=== PATIENT | male | born 1965 | race Caucasian/White ===

== ENCOUNTER 2024-08-08 20:23 | Emergency (ER) | payer OTHER, MEDICAID, SELFPAY ==
[2024-08-08 20:24] VITALS: BMI 19.1
[2024-08-08 20:59] VITALS: BP 142/82; PULSE 60; RESP 18; TEMP 36.6; O2SAT 99
--- NOTE | 2024-08-08 21:12 | XR_ITS ---
Examination: PA lateral chest 2 views Technique: Upright PA lateral chest 2 views Exam date and time: August 08, 2024 2124 hrs. Indications: Chest pain shortness of breath today. Findings: Moderate hyperexpansion No pneumonia in the right middle lobe and lingular segment left upper lobe Normal heart size The osseous structures are intact Tiny opacities overlie the left chest and arm Impression: COPD Pneumonia in the right middle lobe and lingular segment left upper lobe
--- NOTE | 2024-08-08 21:12 | PD.EDRME ---
Rapid Medical Screening Exam RME Arrival date/time: 08/08/24 20:23 59-year-old male presents emergency department complaining of chest pain with shortness of breath for several days. Chief Complaint: Shortness of Breath/Dyspnea Time Seen by Provider: 08/08/24 21:07 Vital signs: Vital Signs Temperature 98 F 08/08/24 20:59 Pulse Rate 60 08/08/24 20:59 Respiratory Rate 18 08/08/24 20:59 Blood Pressure 142/82 H 08/08/24 20:59 Pulse Oximetry (%) 99 08/08/24 20:59 Oxygen Delivery Method Room Air 08/08/24 20:59 Vital signs reviewed by provider: Yes
[2024-08-08 21:58] LABS: Basophils # (Auto) 0.1 Thou/mm3 (0.0-0.2); Basophils % (Auto) 1 % (0-2.5); Eosinophils # (Auto) 0.2 Thou/mm3 (0.0-0.5); Eosinophils % (Auto) 2 % (0-10); Hematocrit 35.9 % (41.0-53.0); Hemoglobin 12.1 g/dL (13.5-16.0); Immature Granulocytes % (Auto) 1 % (0-0); Immature Granulocytes Auto 0.06 Thou/mm3 (0.00-0.00); Lymphocytes % (Auto) 24 % (10-50); Mean Corpuscular HGB Conc 33.7 g/dl (31.0-37.0); Mean Corpuscular Hemoglobin 30.4 pg (25.0-35.0); Mean Corpuscular Volume 90 fL (80-100); Monocytes # (Auto) 1.5 Thou/mm3 (0.0-0.8); Monocytes % (Auto) 12 % (0-12); Neutrophils # (Auto) 7.7 Thou/mm3 (1.8-7.7); Neutrophils % (Auto) 61 % (37-80); Nucleated Red Blood Cell % 0 /100 WBC (0); Platelet Count 489 Thou/mm3 (140-440); RDW Standard Deviation 39.6 fL (35.1-43.9); Red Blood Count 3.98 Miln/mm3 (4.50-5.90); White Blood Count 12.6 Thou/mm3 (3.8-10.6)
[2024-08-08 22:17] LABS: INR 1.1 (0.9-1.3); Partial Thromboplastin Time 32.4 Seconds (22.0-36.0); Prothrombin Time 12.1 Seconds (9.0-12.2)
[2024-08-08 22:22] LABS: B-Type Natriuretic Peptide 30 pg/mL (0-100)
[2024-08-08 22:23] LABS: Alanine Aminotransferase 9 U/L (10-49); Albumin, Serum 4.4 gm/dL (3.4-4.8); Albumin/Globulin Ratio 1.5 (1.2-2.2); Alkaline Phosphatase 116 U/L (46-116); Anion Gap 7 (7-16); Aspartate Amino Transferase 17 U/L (0-34); BUN/Creatinine Ratio 12 Ratio (12-20); Bilirubin,Total 0.3 mg/dL (0.3-1.2); Blood Urea Nitrogen 16 mg/dL (9-23); Calcium 10.1 mg/dL (8.3-10.6); Calcium (Corrected) 10.1 mg/dL (8.5-10.1); Chloride 99 mMol/L (98-107); Creatinine (Component) 1.3 mg/dL (0.6-1.3); Estimated Creatinine Clearance 56.2 mL/min (>60); Glucose 80 mg/dL (74-106); Magnesium 2.1 mg/dL (1.6-2.6); Osmolality,Calculated 268 (275-295); Potassium 4.5 mMol/L (3.4-5.1); Sodium 134 mMol/L (136-145); Total Protein 7.4 gm/dL (5.7-8.2); Troponin I < 0.020 ng/mL (0.0-0.045); eGFR > 60 See Note
--- NOTE | 2024-08-08 23:31 | EDNOTE_ITS ---
ED SOB =RME/HPI General Chief Complaint: Shortness of Breath/Dyspnea Stated Complaint: SOB AND DIZZINESS Time Seen by Provider: 08/08/24 21:07 Source: patient Arrival date/time: 08/08/24 20:23 59-year-old male presents emergency department complaining of chest pain with shortness of breath for several days. Mode of arrival: ambulatory Limitations: no limitations RME / HPI RME / HPI Narrative: 08/08/24 20:23 59-year-old male presents emergency department complaining of chest pain with shortness of breath for several days. Related Data Home Medications ?Medication ?Instructions ?Recorded ?Confirmed buspirone 30 mg tablet 30 mg PO BID 05/11/19 05/11/19 duloxetine 30 mg capsule,delayed 30 mg PO QDAY 05/11/19 05/11/19 release (Cymbalta) gabapentin 600 mg tablet 600 mg PO TID 05/11/19 05/11/19 Previous Rx's ?Medication ?Instructions ?Recorded hydrocodone 5 mg-acetaminophen 325 1 tab PO Q4H PRN pain #20 tabs 05/12/19 mg tablet ([place]) levofloxacin 750 mg tablet 750 mg PO QDAY 5 days #5 tabs 08/08/24 Allergies Allergy/AdvReac Type Severity Reaction Status Date / Time No Known Allergies Allergy Verified 08/08/24 20:23 Review of Systems Review of Systems Systems Reviewed: All systems reviewed, normal except as documented Constitutional Constitutional: Reports system reviewed and no additional complaints, except as documented, Denies body ache(s), Denies chills and Denies fever(s) Eyes Eyes: Reports system reviewed and no additional complaints, except as documented and Denies change in vision ENT Ears, Nose, Mouth, and Throat: Reports system reviewed and no additional complaints, except as documented, Denies disequilibrium, Denies dizziness, Denies sore throat and Denies vertigo Cardiovascular Cardiovascular: Reports system reviewed and no additional complaints, except as documented, Reports chest pain and Reports dyspnea Respiratory Respiratory: Reports system reviewed and no additional complaints, except as documented, Denies chest congestion, Denies cough and Reports dyspnea Gastrointestinal Gastrointestinal: Reports system reviewed and no additional complaints, except as documented, Denies abdominal pain, Denies nausea and Denies vomiting Musculoskeletal Musculoskeletal: Reports system reviewed and no additional complaints, except as documented, Denies abnormal gait and Denies arthralgias Integumentary/Breasts Skin/Breast: Reports system reviewed and no additional complaints, except as documented, Denies erythema, Denies rash and Denies wounds Neurologic Neurologic: Reports system reviewed and no additional complaints, except as documented, Denies abnormal gait, Denies disequilibrium, Denies dizziness and Denies vertigo Past Medical History Past Medical History NEUROLOGIC: Positive Cerebrovascular Accident (2004) and Peripheral Neuropathy; Negative Seizures CARDIAC: Positive Hypertension (B/P ELEVATES DURING STRESS); Negative Cardiac Disorders or Congestive Heart Failure RESPIRATORY: Positive Pulmonary Embolism (AT AGE 22) and Sleep Apnea (UNABLE TO DO SLEEP STUDY); Negative Chronic Obstructive Pulmonary Disease (COPD) GASTROINTESTINAL: Positive Gastrointestinal Disorders and Ulcer (STATES BLEEDS SOMETIMES) GENITOURINARY: Negative Genitourinary Disorders or Renal Disease MUSCULOSKELETAL: Positive Musculoskeletal Disorders (CERVICAL SPONDYLITIS) and Fibromyalgia ENDOCRINE: Negative Endocrine Disorders, Diabetes Mellitus Type 1 or Diabetes Mellitus Type 2 HEMATOLOGIC: Negative Blood Disorders PSYCHO/SOCIAL: Positive Psychiatric Problems, Depression, Anxiety and Post Traumatic Stress Disorder OTHER HISTORY: Positive Falls, MRSA ([facility] INFECTION IN 2010), Chicken Pox, Measles, Mumps and Cancer; Negative Blood Transfusions, Blood Transfusion Reaction, Anesthesia Reactions or Organ Transplant Family History FAMILY HISTORY: Positive Family Psychiatric Problems (BIPOLAR) and Family Cardiac Disorders Surgical History SURGICAL: Positive Open Reduction Internal Fixation (ANKLE IN 1995); Negative Neurologic Surgery or Organ Transplant Social History SMOKING STATUS: Current every day smoker ED Exam General Limitations: Present no limitations General appearance: Present alert and in no apparent distress Head Head exam: Present atraumatic Eye Eye exam: Present normal appearance, PERRL and EOMI ENT ENT exam: Present normal exam, normal oropharynx and mucous membranes moist Neck Neck exam: Present normal inspection, full ROM and trachea midline Chest Chest inspection: Present normal inspection and symmetric chest wall rise Respiratory Respiratory exam: Present normal lung sounds bilaterally Cardiovascular Cardiovascular exam: Present regular rate, normal rhythm and normal heart sounds Abdominal Exam Abdominal exam: Present soft and normal bowel sounds Extremities Exam Extremities exam: Present normal inspection and full ROM Back Exam Back exam: Present normal inspection and full ROM Neurological Exam Neurological exam: Present alert, oriented X3 and CN II-XII intact Psychiatric Psychiatric exam: Present normal affect and normal mood Skin Skin exam: Present warm, dry, intact and normal color Course Quality Measures none Orders Category Date Time Status EKG (ED ONLY) *Do not use* NOW Care 08/08/24 21:12 Completed EKG (ED Only) Stat Exams 08/08/24 21:12 Ordered XR chest 2V Stat Exams 08/08/24 21:12 Completed B-Type Natriuretic Peptide Stat Lab 08/08/24 21:33 Completed CBC Stat Lab 08/08/24 21:33 Completed Comprehensive Metabolic Panel Stat Lab 08/08/24 21:33 Completed Drug Screen,Urine Stat Lab 08/08/24 21:12 Ordered Magnesium Stat Lab 08/08/24 21:33 Completed Partial Thromboplastin Time Stat Lab 08/08/24 21:33 Completed Prothrombin Time with INR Stat Lab 08/08/24 21:33 Completed Troponin I Stat Lab 08/08/24 21:33 Completed Urinalysis Stat Lab 08/08/24 21:12 Ordered cefTRIAXone [Rocephin] 1,000 mg Med 08/08/24 23:30 Discontinued Lidocaine 1% 20 ml [Xylocaine 1% 20 ML] 2.1 ml IM X1 Vital Signs Vital signs: Vital Signs Temperature 98 F 08/08/24 20:59 Pulse Rate 60 08/08/24 20:59 Respiratory Rate 18 08/08/24 20:59 Blood Pressure 142/82 H 08/08/24 20:59 Pulse Oximetry (%) 99 08/08/24 20:59 Oxygen Delivery Method Room Air 08/08/24 20:59 99% room air within normal limits Procedures -ED EKG Interpretation #1: Date of EK08/08/24 Time of EK:25 Rate: 114 Interpretation: Interpreted by me EKG Impression: No acute ST-T changes, No ectopy, No ischemic changes, Sinus tachycardia and Normal QRS Shortness of Breath / Dyspnea MDM Narrative MDM Narrative:: 59-year-old male presents emergency department complaining of chest pain with shortness of breath for several days. CBC mild leukocytosis 12.6. CMP was unremarkable. Negative troponin EKG sinus tach. X-ray findings right middle lobe pneumonia. Patient 99% on room air does not appear to be in any respiratory distress sp eaking in full sentences. Patient refused to give urine and at time of discharge patient was angry, yelling, using foul language, attempted to give discharge instructions but patient was uncooperative and not receptive to instruction at this time. Patient stable for discharge. Patient given IM Rocephin and discharged on oral Levaquin for 5 days. Patient data External records reviewed:: [facility] previous records Clinical information provided by:: patient Social determinants that could affect healthcare access:: none Patient has the following chronic illnesses:: See chart How is presenting disease/condition affected by chronic disease/condition?: uneffected by Evaluation data The following diagnostics were reviewed and interpreted by me:: lab results, radiology exam(s) and EKG tracing(s) Lab and/or radiology exams considered but not ordered:: Ordered Interpretation Summary: Interpreted by me Medications / Prescriptions Medications or Prescriptions considered but not ordered:: Ordered Medication administrations:: Medication Administration History Discontinued Medications Ceftriaxone Sodium 1,000 mg/ (Lidocaine HCl 2.1 ml) 0 mg IM X1 ONE Stop: 08/08/24 23:31 Last Admin: 08/08/24 23:41 Dose: 2.1 mg Documented By: SF Given Consultations Consultation(s) initiated? (list below): No Diagnosis Shortness of Breath Differential Diagnosis: acute exacerbation of chronic obstructive airways disease, congestive heart failure, community acquired pneumonia, asthma with exacerbation and pulmonary embolism Most likely diagnosis given after review of the tests above:: Community-acquired pneumonia Admission Indicated Admission indicated?: not indicated Admission Request Was there a request for admission?: No Disposition Plan Disposition Plan: Discharge Discharge Attestation Discharge Attestation: The patient and all family members were given an opportunity to ask questions and understood the discharge instructions. Discharge instructions specifically effects, indications for sooner follow up or return to the emergency department, and the expected course of current diagnosis. Patient condition: Stable Discharge Plan Plan Patient Disposition: HOME (Self Care) Disposition Comment: Stable Prescriptions/Referrals Prescriptions/Med Rec: New levofloxacin 750 mg tablet 750 mg PO QDAY 5 Days Qty: 5 0RF No Action gabapentin 600 mg Tablet 600 mg PO TID buspirone 30 mg Tablet 30 mg PO BID duloxetine [Cymbalta] 30 mg Capsule,Delayed Release(Dr/Ec) 30 mg PO QDAY hydrocodone-acetaminophen [[place]] 5-325 mg tablet 1 tab PO Q4H MDD 8 PRN (Reason: pain) Qty: 20 0RF Problem List Clinical Impression: Community acquired pneumonia Patient/Caregiver Discharge Instructions Discharge Activity: activity as tolerated Education Materials: ED Pneumonia (Adult) Additional Instructions: Take medication as prescribed. Drink fluids to liquefy secretions and complaining of rest. Follow-up with primary care provider in 2 to 3 days. Return to emergency department for any worsening symptoms or as needed. Print Language: Japanese Stand Alone Forms: Tiera Award Info., Patient Portal Info Letter PA/FRANCHISE BROKER Supervising Physician PA/FRANCHISE BROKER Supervising Physician: Dr. Rosa
[2024-08-08] MEDS: cefTRIAXone 1,000 MG, LIDOCAINE 1% 20 ML 2.1 ML IM (23:41)
== END 2024-08-08 23:49 | disposition home or self-care (01) ==
LOC: SERX 08-09 02:04
PROVIDERS: Emergency Provider Emergency Medicine
DX: J18.9 Pneumonia, unspecified organism (principal); F17.200 Nicotine dependence, unspecified, uncomplicated
CPT/HCPCS: 36415; 71046; 80053; 80307; 81001; 83735; 83880; 84484; 85025; 85610; 85730; 93005; 96372; 99283; J0696; J3490

== ENCOUNTER 2024-10-18 01:03 | Emergency (ER) | payer MEDICARE, MEDICAID, SELFPAY ==
--- NOTE | 2024-10-18 01:50 | PD.EDRME ---
Rapid Medical Screening Exam RME Arrival date/time: 10/18/24 01:03 59 yo m present to ED but did not want to answer any questions. pt was yelling and threaten staff. PD was called. Chief Complaint: Shortness of Breath/Dyspnea Time Seen by Provider: 10/18/24 01:16
--- NOTE | 2024-10-18 02:03 | PC.NURSE ---
DURING TRIAGE PATIENT WAS CUSSING AT STAFF AND THREW PEN ACROSS TABLE.
--- NOTE | 2024-10-18 02:04 | PC.NURSE ---
ONCE IN ROOM TO SEE PROVIDER, PT STARTED CUSSING AT PROVIDER AND OTHER STAFF MEMBERS, ATTEMPTED TO SLAM THE DOOR ON DR MCCORMICK. PT WAS ESCORTED OUTSIDE TO AWAIT PPD
== END 2024-10-18 02:24 | disposition left against medical advice (07) ==
LOC: SERX 05:37
PROVIDERS: Emergency Provider Emergency Medicine
DX: R06.02 Shortness of breath (principal); Z53.29 Procedure and treatment not carried out because of patient's decision for other reasons
CPT/HCPCS: 99281

== ENCOUNTER 2024-10-24 08:54 | Emergency (ER) | payer MEDICARE, MEDICAID, SELFPAY ==
[2024-10-24 08:55] VITALS: PULSE 104; RESP 19
[2024-10-24 09:06] VITALS: BP 138/91; PULSE 89; RESP 19; TEMP 36.3; O2SAT 98
--- NOTE | 2024-10-24 09:16 | XR_ITS ---
Examination: CT brain head without contrast. 2-D sagittal coronal reconstructions Date and time of exam:October 24, 2024 at 10:00 AM Comparison October 24, 2012 INDICATIONS: Headaches nausea vomiting beginning today CTDI: vol (mGy):46.6 DLP: (mGycm):1027 Technique: Multiple CT axial sections of the brain have been obtained, 5 mm slice thickness. Contrast has not been administered. 2-D sagittal, coronal reconstructions have been obtained Low dose protocols were performed. One or more of the following dose reduction techniques were used; automated exposure control, adjustment of the mA and/or KV according to patient size, use of iterative reconstruction technique. Findings: No significant ventricular enlargement. Intra-axial or extra-axial hemorrhage density is not seen. No mass effect or midline shift Basal cisterns are not remarkable. Fourth ventricle is midline. Cranial vault intact. Impression: Negative for acute hemorrhage, mass effect or midline shift Advise clinical correlation follow-up accordingly
--- NOTE | 2024-10-24 09:16 | PD.EDRME ---
Rapid Medical Screening Exam RME Arrival date/time: 10/24/24 08:54 59-year-old male with a no known medical history presents to the emergency room with a chief complaint of blurry vision, headaches x 2 days I have greeted and performed a focused initial assessment of this patient. A comprehensive ED assessment and evaluation of the patient, analysis of all test results, and completion of the medical decision making process will be conducted by additional ED providers. Chief Complaint: General Adult/Misc Complain Time Seen by Provider: 10/24/24 08:58 Vital signs: Vital Signs Temperature 97.3 F 10/24/24 09:06 Pulse Rate 89 10/24/24 09:06 Respiratory Rate 19 10/24/24 09:06 Blood Pressure 138/91 H 10/24/24 09:06 Pulse Oximetry (%) 98 10/24/24 09:06 Oxygen Delivery Method Room Air 10/24/24 09:06 Vital signs reviewed by provider: Yes
--- NOTE | 2024-10-24 09:17 | PC.NURSE ---
Patient yelling at [employer] yaron, and this nurse, requesting help, states i'm not gonna have no blood succer take my blood and i'm not gonna go in a box for xray patient c/o dizziness and blurred vision, informed patient the provider is ordering xrays and labs in order to help find out what is going on with him, patient continuing to yell at nursing staff and provider, called security to speak with patient.
[2024-10-24 10:20] LABS: Basophils # (Auto) 0.1 Thou/mm3 (0.0-0.2); Basophils % (Auto) 1 % (0-2.5); Eosinophils % (Auto) 1 % (0-10); Hematocrit 39.5 % (41.0-53.0); Hemoglobin 13.1 g/dL (13.5-16.0); Immature Granulocytes % (Auto) 0 % (0-0); Immature Granulocytes Auto 0.01 Thou/mm3 (0.00-0.00); Lymphocytes # (Auto) 1.9 Thou/mm3 (1.0-4.8); Lymphocytes % (Auto) 31 % (10-50); Mean Corpuscular HGB Conc 33.2 g/dl (31.0-37.0); Mean Corpuscular Hemoglobin 28.6 pg (25.0-35.0); Mean Corpuscular Volume 86 fL (80-100); Monocytes # (Auto) 0.5 Thou/mm3 (0.0-0.8); Monocytes % (Auto) 8 % (0-12); Neutrophils # (Auto) 3.6 Thou/mm3 (1.8-7.7); Neutrophils % (Auto) 59 % (37-80); Nucleated Red Blood Cell % 0 /100 WBC (0); Platelet Count 383 Thou/mm3 (140-440); RDW Standard Deviation 40.5 fL (35.1-43.9); Red Blood Count 4.58 Miln/mm3 (4.50-5.90); White Blood Count 6.1 Thou/mm3 (3.8-10.6)
[2024-10-24 10:35] LABS: B-Type Natriuretic Peptide 65 pg/mL (0-100)
[2024-10-24 10:38] LABS: Alanine Aminotransferase 11 U/L (10-49); Albumin, Serum 4.2 gm/dL (3.4-4.8); Albumin/Globulin Ratio 1.4 (1.2-2.2); Alkaline Phosphatase 90 U/L (46-116); Anion Gap 8 (7-16); Aspartate Amino Transferase 17 U/L (0-34); BUN/Creatinine Ratio 14 Ratio (12-20); Bilirubin,Total 0.5 mg/dL (0.3-1.2); Blood Urea Nitrogen 13 mg/dL (9-23); Calcium 9.8 mg/dL (8.3-10.6); Calcium (Corrected) 9.8 mg/dL (8.5-10.1); Carbon Dioxide 25.9 mMol/L (20.0-31.0); Chloride 103 mMol/L (98-107); Creatinine (Component) 0.9 mg/dL (0.6-1.3); Glucose 101 mg/dL (74-106); Osmolality,Calculated 273 (275-295); Potassium 4.1 mMol/L (3.4-5.1); Sodium 137 mMol/L (136-145); Total Protein 7.2 gm/dL (5.7-8.2); Troponin I < 0.020 ng/mL (0.0-0.045); eGFR > 60 See Note
--- NOTE | 2024-10-24 13:38 | PC.NURSE ---
PT IS DEMANDING. HE STATES HE IS STILL DIZZY AND IN EXTREME PAIN 22/05 .
--- NOTE | 2024-10-24 15:23 | PC.NURSE ---
patient refused vitals nurse notified
--- NOTE | 2024-10-24 15:29 | PC.NURSE ---
The patient is refusing to be evaluated by the provider and is verbally abusive towards the nursing staff and security. The patient is yelling loudly, insulting all staff members, and refusing care.
--- NOTE | 2024-10-24 15:36 | PC.NURSE ---
PT VERBALLY ABUSIVE TO STAFF MAKING FALSE ACCUSATIONS ABOUT STAFF. PT UPSET BECAUSE HE HAD TO WAIT.
--- NOTE | 2024-10-24 15:40 | PC.NURSE ---
POLICE AT BEDSIDE TO HELP REDIRECT PATIENT, SINCE HE IS SO LOUD CHILDREN AROUND HIM ARE GETTING SCARED.
[2024-10-24] MEDS: HYDROcodone/APAP 10/325 TAB PO (15:41)
--- NOTE | 2024-10-24 15:46 | PD.EDADULT ---
ED General RME/HPI General Chief complaint: General Adult/Misc Complain Stated complaint: C/O BODY ACHES, CORTEZ, DOUBLE VISION, N/V Time Seen by Provider: 10/24/24 08:58 Arrival date/time: 10/24/24 08:54 59 year old male with past medical history of multi complaints. pt was not cooperative and did not allow provider finish a sentence. Review recent labs and CT: no acute findings. urine and drug was not done due to patient not willing to give. pt is tolerating po fluids in exam room. pt was yelling at staff and not allow staff to finish explain his results or dig into his history. Pt decline to answer any follow up question. SEVERITY: Symptoms are described as being severe with limitations on activities of daily living CONTEXT: The patient is unable to identify any inciting events. DURATION/TIMING: The symptoms started approximately for 2 days ASSOCIATED SYMPTOMS: bodyaches, feet pain, vision changes, nausea vomiting MODIFYING FACTORS: The patient is unable to identify any alleviating or aggravating symptoms. PERTINENT ROS: no fevers, no cough, no chest pain/shortness of breath no diarrhea, no rash no loc/syncope episode no abd/back pain no dsyuria,urgency,frequency REVIEW OF SYSTEMS: See History of Present Illness - with the exception of those mentioned in the history of present illness, all other systems reviewed and reported as negative GENERAL: In general the patient is awake, interactive, in an emergency department gurney. HEAD/EYES/EARS/NOSE/THROAT: normo-cephalic, atraumatic, trachea is midline. CARDIOVASCULAR: regular rate and regular rhythm, no murmurs, heart sounds are not distant, strong pulses in all four extremities that are equal and symmetric bilateral upper and lower extremities CHEST/PULMONARY: normal chest rise and fall, good air movement, normal inspiratory to expiratory ratios without evidence of respiratory distress. NEUROLOGICAL: cranio-facial features are symmetric, moves all four extremities equally without obvious limitations or weakness. EXTREMITY: no tenderness to palpation over the long bones or large joints of the bilateral upper and lower extremities, no joint swelling, no joint erythema, no signs of trauma, SKIN: warm, dry, well-perfused, no jaundice, no rash, no telangiectasias or petechia. PSYCH: agitation RME / HPI RME / HPI narrative: 10/24/24 08:54 59-year-old male with a no known medical history presents to the emergency room with a chief complaint of blurry vision, headaches x 2 days I have greeted and performed a focused initial assessment of this patient. A comprehensive ED assessment and evaluation of the patient, analysis of all test results, and completion of the medical decision making process will be conducted by additional ED providers. Related Data Home Medications ?Medication ?Instructions ?Recorded ?Confirmed buspirone 30 mg tablet 30 mg PO BID 05/11/19 05/11/19 duloxetine 30 mg capsule,delayed 30 mg PO QDAY 05/11/19 05/11/19 release (Cymbalta) gabapentin 600 mg tablet 600 mg PO TID 05/11/19 05/11/19 Previous Rx's ?Medication ?Instructions ?Recorded hydrocodone 5 mg-acetaminophen 325 1 tab PO Q4H PRN pain #20 tabs 05/12/19 mg tablet ([place]) Allergies Allergy/AdvReac Type Severity Reaction Status Date / Time No Known Allergies Allergy Verified 10/24/24 08:59 Course Course Course Narrative: DISPOSITION: Emergency Department nursing documentation was reviewed including triage complaint, associated symptoms, administration of medications, response to therapy and vital signs. Given the history, physical exam, and review of any performed laboratory and imaging studies the patient is being discharged in stable condition. I advised the patient to followup with their outpatient provider for further diagnostic testing and treatments as needed. Strict return precautions were given. Quality Measures none Orders Category Date Time Status CT head/brain wo con Stat Exams 10/24/24 09:16 Completed BNP [B-Type Natriuretic Peptide] Stat Lab 10/24/24 09:58 Completed CBC Stat Lab 10/24/24 09:58 Completed Comprehensive Metabolic Panel Stat Lab 10/24/24 09:58 Completed Drug Screen,Urine Stat Lab 10/24/24 09:16 Ordered Troponin I Stat Lab 10/24/24 09:58 Completed Urinalysis Stat Lab 10/24/24 09:16 Ordered Urine Culture Stat Lab 10/24/24 09:16 Ordered HYDROcodone/APAP 10/325 [[place] 10/325] Med 10/24/24 15:33 Discontinued 1 tab PO X1 ONE Vital Signs Vital signs: Vital Signs Temperature 97.3 F 10/24/24 09:06 Pulse Rate 89 10/24/24 09:06 Respiratory Rate 19 10/24/24 09:06 Blood Pressure 138/91 H 10/24/24 09:06 Pulse Oximetry (%) 98 10/24/24 09:06 Oxygen Delivery Method Room Air 10/24/24 09:06 [facility] Patient data External records reviewed:: [facility] previous records Clinical information provided by:: patient Social determinants that could affect healthcare access:: mental health Patient has the following chronic illnesses:: as stated in chart How is presenting disease/condition affected by chronic disease/condition?: exacerbated by Evaluation data The following diagnostics were reviewed and interpreted by me:: lab results and radiology exam(s) Lab and/or radiology exams considered but not ordered:: n/a Interpretation Summary: CT:No significant ventricular enlargement. Intra-axial or extra-axial hemorrhage density is not seen. No mass effect or midline shift Basal cisterns are not remarkable. Fourth ventricle is midline. Cranial vault intact. Impression: Negative for acute hemorrhage, mass effect or midline shift Advise clinical correlation follow-up accordingly cbc/cmp/trop wnl Medications Medications considered but not ordered:: n/a Medication administrations:: Medication Administration History Discontinued Medications Hydrocodone Bitart/Acetaminophen (Hydrocodone/Apap 10/325 Tab) 1 tab PO X1 ONE Stop: 10/24/24 15:34 Last Admin: 10/24/24 15:41 Dose: 1 tab Documented By: RD as state above Consultations Consultation(s) initiated? (list below): No Diagnosis Differential Diagnosis ED Complaint MDM: anemia, head bleed, dehydration/electroyle imbalance, mi/nstemi Most likely diagnosis given after review of the tests above:: agitation Admission Indicated Admission indicated?: not indicated Explain why admission is indicated or not indicated:: n/a Admission Request Was there a request for admission?: No Disposition Plan Disposition Plan: Discharge Discharge Attestation Discharge Attestation: The patient and all family members were given an opportunity to ask questions and understood the discharge instructions. Discharge instructions specifically effects, indications for sooner follow up or return to the emergency department, and the expected course of current diagnosis. Patient condition: Stable Medical Decision Making Differential Diagnosis Differential Diagnosis: anemia, head bleed, dehydration/electroyle imbalance, mi/nstemi Lab Data 10/24/24 09:58 10/24/24 09:58 Labs: Lab Results 10/24/24 Range/Units 09:58 WBC 6.1 (3.8-10.6) Thou/mm3 RBC 4.58 (4.50-5.90) Miln/mm3 Hgb 13.1 L (13.5-16.0) g/dL Hct 39.5 L (41.0-53.0) % MCV 86 (80-100) fL MCH 28.6 (25.0-35.0) pg MCHC 33.2 (31.0-37.0) g/dl RDW Std Deviation 40.5 (35.1-43.9) fL Plt Count 383 (140-440) Thou/mm3 Neut % (Auto) 59 (37-80) % Lymph % (Auto) 31 (10-50) % Lipscomb % (Auto) 8 (0-12) % Eos % (Auto) 1 (0-10) % Baso % (Auto) 1 (0-2.5) % Neut # (Auto) 3.6 (1.8-7.7) Thou/mm3 Lymph # (Auto) 1.9 (1.0-4.8) Thou/mm3 Lipscomb # (Auto) 0.5 (0.0-0.8) Thou/mm3 Eos # (Auto) 0.0 (0.0-0.5) Thou/mm3 Baso # (Auto) 0.1 (0.0-0.2) Thou/mm3 Immature Gran # (Auto) 0.01 H (0.00-0.00) Thou/mm3 Absolute Nucleated RBC 0.00 (0.00-0.00) Thou/mm3 Immature Gran % 0 (0-0) % Nucleated RBC % 0 (0) /100 WBC Sodium 137 (136-145) mMol/L Potassium 4.1 (3.4-5.1) mMol/L Chloride 103 (98-107) mMol/L Carbon Dioxide 25.9 (20.0-31.0) mMol/L Anion Gap 8 (7-16) BUN 13 (9-23) mg/dL Creatinine 0.9 (0.6-1.3) mg/dL Estim Creat Clear Calc Not Performed. eGFR > 60 (60 - ) See Note BUN/Creatinine Ratio 14 (12-20) Ratio Glucose 101 (74-106) mg/dL Calculated Osmolality 273 L (275-295) Calcium 9.8 (8.3-10.6) mg/dL Corrected Calcium 9.8 (8.5-10.1) mg/dL Total Bilirubin 0.5 (0.3-1.2) mg/dL AST 17 (0-34) U/L ALT 11 (10-49) U/L Alkaline Phosphatase 90 (46-116) U/L Troponin I < 0.020 (0.0-0.045) ng/mL B-Natriuretic Peptide 65 (0-100) pg/mL Total Protein 7.2 (5.7-8.2) gm/dL Albumin 4.2 (3.4-4.8) gm/dL Globulin 3.0 (2.3-3.5) gm/dL Albumin/Globulin Ratio 1.4 (1.2-2.2) Discharge Plan Plan Patient Disposition: HOME (Self Care) Health Concerns: DISPOSITION: Emergency Department nursing documentation was reviewed including triage complaint, associated symptoms, administration of medications, response to therapy and vital signs. Given the history, physical exam, and review of any performed laboratory and imaging studies the patient is being discharged in stable condition. I advised the patient to followup with their outpatient provider for further diagnostic testing and treatments as needed. Strict return precautions were given. Prescriptions/Referrals Prescriptions/Med Rec: No Action gabapentin 600 mg Tablet 600 mg PO TID buspirone 30 mg Tablet 30 mg PO BID duloxetine [Cymbalta] 30 mg Capsule,Delayed Release(Dr/Ec) 30 mg PO QDAY hydrocodone-acetaminophen [[place]] 5-325 mg tablet 1 tab PO Q4H MDD 8 PRN (Reason: pain) Qty: 20 0RF Referrals: No Primary/Family,Physician [Primary Care Provider] - In 1 week Problem List Clinical Impression: Agitation Patient/Caregiver Discharge Instructions Print Language: Andorran Stand Alone Forms: [employer]iera Award Info., Patient Portal Info Letter
--- NOTE | 2024-10-24 16:13 | PC.CC ---
[employer] supported with transport arrangement via [facility].
== END 2024-10-24 16:25 | disposition home or self-care (01) ==
PROVIDERS: Nurse Practitioner Family; Emergency Provider Emergency Medicine
DX: R45.1 Restlessness and agitation (principal); R11.2 Nausea with vomiting, unspecified; R51.9 Headache, unspecified
CPT/HCPCS: 36415; 70450; 80053; 80307; 81001; 83880; 84484; 85025; 87086; 99284; A9270